=== PATIENT | male | born 1985 | race Caucasian/White ===

== ENCOUNTER 2016-07-12 05:01 | Emergency (ER) | payer SELFPAY ==
[~2016-07-12] VITALS: Ht 175.3 cm; Wt 58.7 kg
[~2016-07-12 05:01] MED LIST: CALAMINE LOTIO120 ML TP; CLEOCIN300 MG PO; MOTRIN600 MG PO; NAPROXEN500 MG PO; NOHOMEMEDS; PEN-VEE K,VEET500 MG PO; TRAMADOL HCL50 MG PO; ULTRAM50 MG PO
[2016-07-12 05:04] VITALS: BP 96/68
[2016-07-12] MEDS ORDERED: MOTRIN600 MG PO (05:58)
== END 2016-07-12 06:41 | disposition home or self-care (01) ==
LOC: EME 05:01
DX: S60.511A Abrasion of right hand, initial encounter (principal); S63.610A Unspecified sprain of right index finger, initial encounter; W23.0XXA Caught, crushed, jammed, or pinched between moving objects, initial encounter
CPT/HCPCS: 73130; 99281; 99284

== ENCOUNTER 2017-01-19 17:47 | Emergency (ER) | payer SELFPAY ==
[~2017-01-19] VITALS: Ht 175.3 cm; Wt 61.3 kg
[2017-01-19 20:00] VITALS: BP 138/82
[2017-01-19] MEDS ORDERED: NORCO 7.5/321 TABLET PO (20:18)
[2017-01-19] MEDS ORDERED: VALIUM5 MG PO (20:18)
[2017-01-19] MEDS ORDERED: MOTRIN800 MG PO (20:18)
== END 2017-01-19 20:46 | disposition home or self-care (01) ==
LOC: EME 17:47
DX: S16.1XXA Strain of muscle, fascia and tendon at neck level, initial encounter (principal); S93.602A Unspecified sprain of left foot, initial encounter; S29.012A Strain of muscle and tendon of back wall of thorax, initial encounter; S40.012A Contusion of left shoulder, initial encounter; W10.9XXA Fall (on) (from) unspecified stairs and steps, initial encounter; F17.200 Nicotine dependence, unspecified, uncomplicated
CPT/HCPCS: 72040; 73010; 73630; 99281; 99284

== ENCOUNTER 2017-06-30 11:08 | Emergency (ER) | payer SELFPAY ==
[~2017-06-30] VITALS: Ht 175.3 cm; Wt 56.2 kg
[~2017-06-30 11:08] MED LIST changes: +MOTRIN800 MG PO; +NORCO 7.5/321 TABLET PO; +VALIUM5 MG PO
[2017-06-30] MEDS ORDERED: MOTRIN800 MG PO (12:53)
[2017-06-30] MEDS ORDERED: FLEXERIL10 MG PO (12:53)
[2017-06-30 13:25] VITALS: BP 125/92
== END 2017-06-30 13:25 | disposition home or self-care (01) ==
LOC: EXP 11:08 → EME 11:08 → EXP 13:25
DX: S46.912A Strain of unspecified muscle, fascia and tendon at shoulder and upper arm level, left arm, initial encounter (principal); X50.0XXA Overexertion from strenuous movement or load, initial encounter; Y93.89 Activity, other specified; Y99.0 Civilian activity done for income or pay
CPT/HCPCS: 73030; 99281; 99283